=== PATIENT | male | born 1945 | race Caucasian/White ===

== ENCOUNTER 2016-09-28 11:04 | Observation (INO) ==
[2016-09-28] MEDS ORDERED: *HR* HYDROmorphone (PF) 1 MG/ML SYRINGE IVP ONE (11:16)
[2016-09-28] MEDS ORDERED: Ondansetron 4 MG/2 ML VIAL IV ONE (11:21)
--- NOTE | 2016-09-28 11:25 | Emergency Department Note ---
Disposition Clinical Impression: Cholelithiasis Qualifiers: Cholelithiasis location: gallbladder Disposition: Admitted As Inpatient Abdominal Pain HPI - General Chief Complaint: ED Abdominal Pain Stated Complaint: gallbladder pain Time Seen by Provider: 09/28/16 11:09 Source: patient, family Nursing Notes Reviewed: Yes Vital Signs Reviewed: Yes - History of Present Illness HPI Narrative: Patient comes complaint continued right upper quadrant, pain. Patient said this pain for a year and was seen twice on 09/26/2016 for similar pain. Patient states the pain is becoming unbearable and he called his surgeon's office for advice on any current remedies. Patient was advised to report to [facility] primary for evaluation. Patient feels that he is more "yellow" and normal. Patient denies bowel bladder dysfunction to the shortness of breath. Patient complains of pain is similar to what he has had the past and is at some nausea associated with this. Pain Scale: 6 - Related Data Home Medications Medication Instructions Recorded Confirmed Aspirin [Adult Low Dose Aspirin EC] 81 mg PO DAILY 10/05/15 09/28/16 Clopidogrel [Plavix] 75 mg PO DAILY 10/05/15 09/28/16 Lisinopril [Zestril] 10 mg PO DAILY 10/05/15 09/28/16 Metoprolol [Lopressor] 25 mg PO BID 10/05/15 09/28/16 Nitroglycerin 0.4 mg SL Q5MIN 10/05/15 09/28/16 Pantoprazole Sodium [Protonix] 40 mg PO DAILY 10/05/15 09/28/16 Tamsulosin [Flomax] 0.4 mg PO DAILY 10/05/15 09/28/16 Simvastatin 40 mg PO HS 03/02/16 09/28/16 Previous Rx's Medication Instructions Recorded OxyCODONE/APAP 5/325 [Percocet 1 each PO Q4HR PRN #14 tablet 09/26/16 5/325 MG] Allergies Allergy/AdvReac Type Severity Reaction Status Date / Time Penicillins Allergy Swelling Verified 09/28/16 12:15 of Lip/Tongue/Throat All systems ED: reviewed and negative except as stated. Abdominal Pain PMH - Past Medical History Medical history: Reports: coronary artery disease, diabetes, GERD, hyperlipidemia, hypertension, myocardial infarction Male Surgical History: Reports: angioplasty/stent, other Psychiatric history: Reports: no psych history - Social History Smoking status: Former smoker Alcohol use: Reports: none Drug use: Reports: none Physical Exam - General Limitations: no limitations General appearance: alert, in no apparent distress - Head Head exam: atraumatic, normocephalic, normal inspection - Eye Eye exam: Present: normal appearance, PERRL, EOMI - ENT ENT exam: normal exam, normal oropharynx, mucous membranes moist - Neck Neck exam: Present: normal inspection, full ROM, trachea midline - Chest Chest inspection: Present: normal inspection, symmetric chest wall rise - Respiratory Respiratory exam: Present: normal lung sounds bilaterally - Cardiovascular Cardiovascular exam: Present: regular rate, normal rhythm, normal heart sounds - Abdominal Exam Abdominal exam: Present: soft, tenderness. Absent: distention, guarding, rebound Abdominal tenderness: Present: RUQ - Extremities Exam Extremities exam: Present: normal inspection, full ROM. Absent: tenderness, pedal edema - Back Exam Back exam: Present: normal inspection, full ROM. Absent: tenderness - Neurological Exam Neurological exam: Present: alert, oriented X3 - Psychiatric Psychiatric exam: Present: normal affect, normal mood - Skin Skin exam: Present: warm, dry, intact, normal color Course Vital Signs Temperature 97.4 F L 09/28/16 11:05 Pulse Rate 86 09/28/16 11:05 Respiratory Rate 16 09/28/16 11:05 Blood Pressure 131/85 09/28/16 11:05 O2 Sat by Pulse Oximetry 97 09/28/16 11:05 Temperature 97.4 F L 09/28/16 11:05 Pulse Rate 80 09/28/16 12:07 Respiratory Rate 16 09/28/16 12:37 Blood Pressure 98/68 09/28/16 12:37 O2 Sat by Pulse Oximetry 97 09/28/16 12:07 Oxygen Delivery Oxygen Delivery Room Air Abdominal Pain - Differential Diagnosis Differential Diagnosis: Likely: abdominal pain non-specific, acute appendicitis , diverticulitis, gastroenteritis, pancreatitis - Lab Data Lab results reviewed: Yes I reviewed the patient's lab results. Result diagrams: 09/28/16 12:04 09/28/16 12:04 Lab Results 09/28/16 09/28/16 09/28/16 Range/Units 12:04 12:04 12:04 WBC 4.3 (4.3-11.1) K/mcL RBC 4.63 (4.19-5.50) M/mcL Hgb 12.2 L (12.9-16.9) g/dL Hct 37.7 (37.5-50.1) % MCV 81.4 L (83.0-100.0) fL MCH 26.3 L (28.0-33.3) pg MCHC 32.4 (31.6-35.5) g/dL RDW 14.0 (11.5-14.5) % Plt Count 189 (140-400) K/mcL MPV 10.0 (9.4-12.4) fL Immature Gran % 0.7 (0-4) % Seg Neutrophils % 71.1 % Lymphocytes % 13.4 % Monocytes % 12.2 % Eosinophils % 2.1 % Basophils % 0.5 % Neutrophils # 3.0 (1.6-8.9) K/mcL Lymphocytes # 0.6 (0.6-4.6) K/mcL Monocytes # 0.5 (0.0-1.3) K/mcL Eosinophils # 0.1 (0.0-0.6) K/mcL Basophils # 0.0 (0.0-0.2) K/mcL Sodium 136 (136-145) mEq/L Potassium 4.0 (3.5-4.5) mEq/L Chloride 106 (98-109) mEq/L Carbon Dioxide 22 (19-29) mEq/L BUN 10 (8-26) mg/dL Creatinine 0.80 (0.72-1.25) mg/dL Est GFR ( Amer) > 60 (> 60) Est GFR (Non-Af Amer) > 60 (> 60) BUN/Creatinine Ratio 13 (6-26) Glucose 111 H (70-99) mg/dL Calculated Osmolality 282 (280-300) Calcium 9.2 (8.6-10.8) mg/dL Total Bilirubin 2.7 H (0.2-1.2) mg/dL AST 47 H (5-34) Units/L ALT 177 H (0-55) Units/L Alkaline Phosphatase 233 H (38-126) Units/L Serum Total Protein 7.1 (6.0-8.3) g/dL Albumin 3.2 L (3.5-5.0) g/dL Globulin 3.9 H (2.4-3.5) g/dL Albumin/Globulin Ratio 0.8 L (1.1-2.2) Lipase 13 (8-78) Units/L
[2016-09-28 12:20] LABS: Basophils % 0.5 %; Eosinophils # 0.1 K/mcL (0.0-0.6); Eosinophils % 2.1 %; Hematocrit 37.7 % (37.5-50.1); Hemoglobin 12.2 g/dL (12.9-16.9); Immature Granulocytes % 0.7 % (0-4); Lymphocytes # 0.6 K/mcL (0.6-4.6); Lymphocytes % 13.4 %; Mean Corpuscular HGB Conc 32.4 g/dL (31.6-35.5); Mean Corpuscular Hemoglobin 26.3 pg (28.0-33.3); Mean Corpuscular Volume 81.4 fL (83.0-100.0); Monocytes # 0.5 K/mcL (0.0-1.3); Monocytes % 12.2 %; Platelet Count 189 K/mcL (140-400); Red Blood Count 4.63 M/mcL (4.19-5.50); Segmented Neutrophils % 71.1 %
[2016-09-28 12:33] LABS: Alanine Aminotransferase 177 Units/L (0-55); Albumin 3.2 g/dL (3.5-5.0); Albumin/Globulin Ratio 0.8 (1.1-2.2); Alkaline Phosphatase 233 Units/L (38-126); Aspartate Amino Transferase 47 Units/L (5-34); BUN/Creatinine Ratio 13 (6-26); Bilirubin,Total 2.7 mg/dL (0.2-1.2); Blood Urea Nitrogen 10 mg/dL (8-26); Calcium 9.2 mg/dL (8.6-10.8); Carbon Dioxide 22 mEq/L (19-29); Chloride 106 mEq/L (98-109); Globulin 3.9 g/dL (2.4-3.5); Glucose 111 mg/dL (70-99); Osmolality,Calculated 282 (280-300); Sodium 136 mEq/L (136-145); Total Protein 7.1 g/dL (6.0-8.3); eGFR For African Americans > 60 (> 60); eGFR For Non-African Americans > 60 (> 60)
--- NOTE | 2016-09-28 13:36 | General Surg History&Physical ---
<Patsy Witt - Last Filed: 09/28/16 13:31> Date of Encounter: 09/28/16 Time of Encounter: 13:31 Assessment and Plan (1) Recurrent biliary colic Current Visit: Yes Status: Acute The assessment and plan as outlined above was discussed with the patient and/or family members who expressed understanding and agreement. All questions were answered. Clear liquid diet NPO after midnight Plan to proceed to the OR for laparoscopic cholecystectomy with cholangiogram with Dr. Wilkerson tomorrow 09/29/16 Supportive care and pain control IV fluids Repeat labs in the am (2) Cholelithiasis Current Visit: Yes Status: Acute The assessment and plan as outlined above was discussed with the patient and/or family members who expressed understanding and agreement. All questions were answered. Clear liquid diet NPO after midnight Plan to proceed to the OR for laparoscopic cholecystectomy with cholangiogram with Dr. Wilkerson tomorrow 09/29/16 May need ERCP pending the results of intra-operative cholangiogram Supportive care and pain control IV fluids Repeat labs in the am Qualifiers: Cholelithiasis location: gallbladder Cholecystitis presence: without cholecystitis Biliary obstruction: with biliary obstruction Qualified Code(s ): K80.21 - Calculus of gallbladder without cholecystitis with obstruction (3) Elevated LFTs Current Visit: No Status: Acute The assessment and plan as outlined above was discussed with the patient and/or family members who expressed understanding and agreement. All questions were answered. Clear liquid diet NPO after midnight Plan to proceed to the OR for laparoscopic cholecystectomy with cholangiogram with Dr. Wilkerson tomorrow 09/29/16 May need ERCP pending the results of intra-operative cholangiogram Supportive care and pain control IV fluids Repeat labs in the am (4) Coronary artery disease Current Visit: No Status: Chronic The assessment and plan as outlined above was discussed with the patient and/or family members who expressed understanding and agreement. All questions were answered. Qualifiers: Coronary Disease-Associated Artery/Lesion type: [place] artery [place] vs. transplanted heart: [place] heart Associated angina: without angina Qualified Code(s): I25.10 - Atherosclerotic heart disease of [place] coronary artery without angina pectoris (5) Hypertension Current Visit: No Status: Chronic The assessment and plan as outlined above was discussed with the patient and/or family members who expressed understanding and agreement. All questions were answered. Normotensive at this time Will monitor and treat as necessary Qualifiers: Hypertension type: essential hypertension Qualified Code(s): I10 - Essential (primary) hypertension (6) Hyperlipidemia Current Visit: No Status: Chronic The assessment and plan as outlined above was discussed with the patient and/or family members who expressed understanding and agreement. All questions were answered. Qualifiers: Hyperlipidemia type: unspecified Qualified Code(s): E78.5 - Hyperlipidemia , unspecified (7) DVT prophylaxis Current Visit: Yes Status: Acute The assessment and plan as outlined above was discussed with the patient and/or family members who expressed understanding and agreement. All questions were answered. EPCDs to bilateral lower extremities for DVT prophylaxis History of Present Illness Chief complaint: RUQ pain with associated nausea/vomiting HPI: Mr. Albert is a 71 year old male who has been seen and evaluated by Dr. Wilkerson as an outpatient for Recurrent biliary colic. He states that he has had symptoms on and off for approximately the past 1 year. He states that his most recent episode occurred last night and that they episodes are becoming more frequent and intense. He reported to the ED with severe RUQ pain with associated nausea/vomiting. He denies any hematemesis or coffee ground emesis. He does admit to chills but denies any fevers. He admits to heartburn. He denies diarrhea but does admit to constipation. His last BM was this morning and he denies any melena or hematochezia. He states that he noticed his skin appeared yellow this morning. Denies any shortness of breath or chest pains. He is urinating without difficulty however his urine was dark this morning. We will be admitting the patient for further work-up and treatment. Past Med Surg Social Fam HX - Past Medical History Source: patient, old records reviewed Medical history: coronary artery disease, diabetes, GERD, hyperlipidemia, hypertension, myocardial infarction, other (irregular heart beat) Psychiatric history: no psych history - Past Surgical History Surgical History: angioplasty/stent (01/23/2013), other (colonoscopy 2009, EGD) - Social History Smoking Status: Former smoker Smokeless Tobacco Status: No Alcohol use: none Drug use: none - Family History Father Living Status: Hx Family Cardiac Disorders: Yes Hx Family Cancer: Yes Mother Hx Family Cancer: Yes Medications and Allergies Aspirin [Adult Low Dose Aspirin EC] 81 mg PO DAILY 01/16/16 [History] Clopidogrel [Plavix] 75 mg PO DAILY 10/05/15 [History] Lisinopril [Zestril] 10 mg PO DAILY 10/05/15 [History] Metoprolol [Lopressor] 25 mg PO BID 10/05/15 [History] Nitroglycerin 0.4 mg SL Q5MIN 10/05/15 [History] Pantoprazole Sodium [Protonix] 40 mg PO DAILY 10/05/15 [History] Tamsulosin [Flomax] 0.4 mg PO DAILY 10/05/15 [History] Simvastatin 40 mg PO HS 03/02/16 [History] OxyCODONE/APAP 10/325 [Percocet 10/325 MG] 1 each PO Q6HR PRN #26 tablet [Rx] Allergies Penicillins Allergy (Verified 09/28/16 12:15) Swelling of Lip/Tongue/Throat Review of Systems All systems PM: reviewed and no additional remarkable complaints except as stated (in the HPI) All systems PM: A 10-system review of systems was performed and is negative for pertinent findings except as documented above in the HPI. General Surgery Exam Initial Vital Signs Temp Pulse Resp BP Pulse Ox 97.4 F L 86 16 131/85 97 09/28/16 11:05 09/28/16 11:05 09/28/16 11:05 09/28/16 11:05 09/28/16 11:05 - General physical appearance well developed, well nourished, no distress, no pain - Eyes normal ocular movement, icteric - ENT normal mucosa, atraumatic, normocephalic - Neck trachea midline - Respiratory normal expansion, normal respiratory effort, clear to auscultation - Cardiovascular Cardiovascular exam: Present: RRR, 15, 16 - Abdomen Abdomen general surgery: Present: bowel sounds present, soft, tender (mildly) Abdominal Tenderness: Present: epigastic, RUQ - Integumentary Integumentary general surgery: Present: warm and dry, no abnormal pigmentation - Neurologic Present: CN 2-12 grossly intact - Musculoskeletal Present: normal gait, normal posture - Psychiatric Psychiatric general surgery: Present: appropriate, oriented to person, oriented to place, oriented to time, speech is normal, memory intact Results - Labs 09/28/16 12:04 09/28/16 12:04 Abnormal lab results Hgb 12.2 g/dL (12.9-16.9) L 09/28/16 12:04 MCV 81.4 fL (83.0-100.0) L 09/28/16 12:04 MCH 26.3 pg (28.0-33.3) L 09/28/16 12:04 Glucose 111 mg/dL (70-99) H 09/28/16 12:04 Total Bilirubin 2.7 mg/dL (0.2-1.2) H 09/28/16 12:04 AST 47 Units/L (5-34) H 09/28/16 12:04 ALT 177 Units/L (0-55) H 09/28/16 12:04 Alkaline Phosphatase 233 Units/L (38-126) H 09/28/16 12:04 Albumin 3.2 g/dL (3.5-5.0) L 09/28/16 12:04 Globulin 3.9 g/dL (2.4-3.5) H 09/28/16 12:04 Albumin/Globulin Ratio 0.8 (1.1-2.2) L 09/28/16 12:04 All other labs normal. - Attending Attestation I examined this patient and my medical decision-making was reviewed with the KILN PLACER/PA/Advanced Practice Nurse/Resident Physician. I agree with the documented findings, disposition and treatment plan as described except to the extent set forth below. <Deng Wilkerson - Last Filed: 09/30/16 08:04> History of Present Illness HPI: Mr. Albert is a 71 year old male Review of Systems All systems PM: A 10-system review of systems was performed and is negative for pertinent findings except as documented above in the HPI. General Surgery Exam Initial Vital Signs Temp Pulse Resp BP Pulse Ox 97.4 F L 86 16 131/85 97 09/28/16 11:05 09/28/16 11:05 09/28/16 11:05 09/28/16 11:05 09/28/16 11:05 Results - Labs 09/30/16 05:11 09/29/16 04:23 Abnormal lab results Hgb 11.3 g/dL (12.9-16.9) L 09/30/16 05:11 Hct 35.6 % (37.5-50.1) L 09/30/16 05:11 MCV 82.2 fL (83.0-100.0) L 09/30/16 05:11 MCH 26.1 pg (28.0-33.3) L 09/30/16 05:11 PT 12.5 Seconds (9.4-12.1) H 09/29/16 04:23 Creatinine 0.70 mg/dL (0.72-1.25) L 09/29/16 04:23 Total Bilirubin 1.5 mg/dL (0.2-1.2) H 09/30/16 05:11 Direct Bilirubin 0.6 mg/dL (0.0-0.5) H 09/30/16 05:11 AST 59 Units/L (5-34) H 09/30/16 05:11 ALT 120 Units/L (0-55) H 09/30/16 05:11 Alkaline Phosphatase 190 Units/L (38-126) H 09/30/16 05:11 Albumin 3.0 g/dL (3.5-5.0) L 09/30/16 05:11 Globulin 3.8 g/dL (2.4-3.5) H 09/30/16 05:11 Albumin/Globulin Ratio 0.8 (1.1-2.2) L 09/30/16 05:11 Urine Protein 30 mg/dL (Neg-Trace) H 09/28/16 14:50 Urine Ketones Trace mg/dL (Negative) H 09/28/16 14:50 Urine Blood Trace (Negative) H 09/28/16 14:50 Urine Bilirubin Moderate (Negative) H 09/28/16 14:50 Urine Urobilinogen 4.0 mg/dL (Normal) H 09/28/16 14:50 Ur Squamous Epith Cells Moderate per lpf (None-Few) H 09/28/16 14:50 Diabetes panel 09/30/16 Range/Units 05:11 AST 59 H (5-34) Units/L ALT 120 H (0-55) Units/L Alkaline Phosphatase 190 H (38-126) Units/L Albumin 3.0 L (3.5-5.0) g/dL Calcium panel 09/30/16 Range/Units 05:11 Albumin 3.0 L (3.5-5.0) g/dL Adrenal panel 09/30/16 Range/Units 05:11 Total Bilirubin 1.5 H (0.2-1.2) mg/dL AST 59 H (5-34) Units/L ALT 120 H (0-55) Units/L Alkaline Phosphatase 190 H (38-126) Units/L Albumin 3.0 L (3.5-5.0) g/dL All other labs normal. - Attending Attestation Deng Wilkerson MD FACS
[2016-09-28] MEDS ORDERED: Ondansetron 4 MG/2 ML VIAL IVP PRN (14:09)
[2016-09-28] MEDS ORDERED: Naloxone 0.4 MG/ML INJ IVP PRN (14:09)
[2016-09-28] MEDS: 0.9 % Sodium Chloride 1,000 ML IVC SCH (14:50)
[2016-09-28 15:02] LABS: Bilirubin,Urine Moderate (Negative); Blood,Urine Trace (Negative); Clarity,Urine Clear (Clear); Color,Urine Dark Yellow (Yellow); Glucose,Urine (UA) Normal (Normal); Ketones,Urine Trace mg/dL (Negative); Leukocyte Esterase,Urine Negative (Negative); Nitrite,Urine Negative (Negative); PH,Urine 5.5 pH Units (5.0-8.0); Protein,Urine 30 mg/dL (Neg-Trace); Specific Gravity,Urine 1.024 (1.010-1.025)
[2016-09-28 15:04] LABS: Bacteria,Urine None Seen per hpf (None-Few); Hyaline Casts,Urine None Seen per lpf (None-Few); RBC,Urine 0-3 per hpf (0-3); Squamous Epithelial Cell,Urine Moderate per lpf (None-Few); WBC,Urine 0-3 per hpf (0-3)
--- NOTE | 2016-09-28 20:29 | Anesthesia Evaluation PreOp ---
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 History: Denies Any Significant HX Other Medical History: Diabetes Type II, GERD Anesthesia History: No Prior Anesthetic Complications, Past Anesthesia ( angioplasty/stent, cscope, egd) Alcohol Use: none Drug use: none Medications and Allergies Aspirin [Adult Low Dose Aspirin EC] 81 mg PO DAILY 10/05/15 [History] Clopidogrel [Plavix] 75 mg PO DAILY 10/05/15 [History] Lisinopril [Zestril] 10 mg PO DAILY 10/05/15 [History] Metoprolol [Lopressor] 25 mg PO BID 10/05/15 [History] Nitroglycerin 0.4 mg SL Q5MIN 10/05/15 [History] Pantoprazole Sodium [Protonix] 40 mg PO DAILY 10/05/15 [History] Tamsulosin [Flomax] 0.4 mg PO DAILY 10/05/15 [History] Simvastatin 40 mg PO HS 03/02/16 [History] OxyCODONE/APAP 5/325 [Percocet 5/325 MG] 1 each PO Q4HR PRN #14 tablet 09/26/16 [Rx] Allergies Penicillins Allergy (Verified 09/28/16 12:15) Swelling of Lip/Tongue/Throat - Meds/Allergy Pre-op Review Medications Reviewed: Yes Allergies Reviewed: Yes Beta Blockers on Current Med List: Yes If Beta Blockers taken, Date/Time (Last Dose taken): metoprolol Anesthesia Results - Labs 09/28/16 12:04 09/28/16 12:04 - Imaging EKG: report reviewed (sr) Anesthesia Exam Vital Signs/O2 Sat/Glucose, Most Current Temp Pulse Resp BP Pulse Ox 09/28/16 20:00 98.1 F 95 16 108/66 94 L Height: 1.8 Weight: 82 NPO (# of Hours): >8 - HEENT Pupil (Motor): Pupils equal, EOMI Mallampati: II Teeth: Poor dentition Oral Opening: Greater than 3 - 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
[2016-09-28] MEDS: *HR* HYDROmorphone (PF) 1 MG/ML SYRINGE IVP PRN (23:43)
[2016-09-29 05:01] LABS: INR 1.2; Prothrombin Time 12.5 Seconds (9.4-12.1)
[2016-09-29 05:06] LABS: Basophils % 0.5 %; Eosinophils # 0.1 K/mcL (0.0-0.6); Eosinophils % 2.2 %; Hematocrit 34.6 % (37.5-50.1); Immature Granulocytes % 0.3 % (0-4); Lymphocytes # 0.9 K/mcL (0.6-4.6); Lymphocytes % 23.6 %; Mean Corpuscular HGB Conc 31.8 g/dL (31.6-35.5); Mean Corpuscular Hemoglobin 26.1 pg (28.0-33.3); Mean Corpuscular Volume 82.2 fL (83.0-100.0); Mean Platelet Volume 10.3 fL (9.4-12.4); Monocytes # 0.5 K/mcL (0.0-1.3); Monocytes % 12.8 %; Neutrophils # 2.2 K/mcL (1.6-8.9); Platelet Count 184 K/mcL (140-400); Red Blood Count 4.21 M/mcL (4.19-5.50); Segmented Neutrophils % 60.6 %
[2016-09-29 05:12] LABS: Alanine Aminotransferase 126 Units/L (0-55); Albumin 2.9 g/dL (3.5-5.0); Albumin/Globulin Ratio 0.8 (1.1-2.2); Alkaline Phosphatase 202 Units/L (38-126); Aspartate Amino Transferase 33 Units/L (5-34); BUN/Creatinine Ratio 11 (6-26); Bilirubin,Direct 0.7 mg/dL (0.0-0.5); Bilirubin,Indirect 1.1 mg/dL (0.0-1.2); Bilirubin,Total 1.8 mg/dL (0.2-1.2); Blood Urea Nitrogen 8 mg/dL (8-26); Calcium 8.6 mg/dL (8.6-10.8); Carbon Dioxide 22 mEq/L (19-29); Chloride 107 mEq/L (98-109); Globulin 3.5 g/dL (2.4-3.5); Glucose 97 mg/dL (70-99); Osmolality,Calculated 282 (280-300); Potassium 3.9 mEq/L (3.5-4.5); Sodium 137 mEq/L (136-145); Total Protein 6.4 g/dL (6.0-8.3); eGFR For African Americans > 60 (> 60); eGFR For Non-African Americans > 60 (> 60)
[2016-09-29] MEDS: *HR* HYDROmorphone (PF) 1 MG/ML SYRINGE IVP PRN ×5 (06:44→17:38)
[2016-09-29] MEDS ORDERED: Pantoprazole 40 MG VIAL IVP SCH (09:00)
--- NOTE | 2016-09-29 11:39 | General Surgery Progress Note ---
Date of Encounter: 09/29/16 Time of Encounter: 11:37 - Assessment and Plan (1) Cholelithiasis Current Visit: Yes Status: Acute I discussed with the patient that I will be performing the laparoscopic cholecystectomy with [facility] today instead of Dr. Wilkerson due to scheduling conflicts. Risks and benefits have been discussed with the patient and he agrees to the above planned surgery. Qualifiers: Cholelithiasis location: gallbladder Cholecystitis presence: without cholecystitis Biliary obstruction: with biliary obstruction Qualified Code(s ): K80.21 - Calculus of gallbladder without cholecystitis with obstruction (2) Elevated LFTs Current Visit: No Status: Acute Please see above. Subjective Patient reports: no new complaints, other (Not currently having pain.) Objective Vital Signs - Last 8 Hours Temp Pulse Resp BP Pulse Ox 09/29/16 07:00 98.0 F 76 16 131/77 94 L 09/29/16 04:27 98.1 F 77 16 124/77 94 L Intake and Output 09/28/16 09/29/16 09/29/16 23:59 07:59 15:59 Intake Total 960 / 960 0 / 0 Output Total 1000 / 1000 250 / 250 380 / 380 Balance -40 / -40 -250 / -250 -380 / -380 Intake: Oral 960 / 960 0 / 0 Output: Urine 1000 / 1000 250 / 250 380 / 380 Other: Meal Dinner NPO breakfast Blood Glucose* 76 90 - General physical appearance well developed, well nourished - Abdomen Abdomen: Present: bowel sounds present, soft, non tender - Labs 09/29/16 04:23 09/29/16 04:23 Diabetes panel 09/29/16 Range/Units 04:23 Sodium 137 (136-145) mEq/L Potassium 3.9 (3.5-4.5) mEq/L Chloride 107 (98-109) mEq/L Carbon Dioxide 22 (19-29) mEq/L BUN 8 (8-26) mg/dL Creatinine 0.70 L (0.72-1.25) mg/dL Glucose 97 (70-99) mg/dL Calcium 8.6 (8.6-10.8) mg/dL AST 33 (5-34) Units/L ALT 126 H (0-55) Units/L Alkaline Phosphatase 202 H (38-126) Units/L Albumin 2.9 L (3.5-5.0) g/dL Calcium panel 09/29/16 Range/Units 04:23 Calcium 8.6 (8.6-10.8) mg/dL Albumin 2.9 L (3.5-5.0) g/dL Pituitary panel 09/29/16 Range/Units 04:23 Sodium 137 (136-145) mEq/L Potassium 3.9 (3.5-4.5) mEq/L Chloride 107 (98-109) mEq/L Carbon Dioxide 22 (19-29) mEq/L BUN 8 (8-26) mg/dL Creatinine 0.70 L (0.72-1.25) mg/dL Glucose 97 (70-99) mg/dL Calcium 8.6 (8.6-10.8) mg/dL Adrenal panel 09/29/16 Range/Units 04:23 Sodium 137 (136-145) mEq/L Potassium 3.9 (3.5-4.5) mEq/L Chloride 107 (98-109) mEq/L Carbon Dioxide 22 (19-29) mEq/L BUN 8 (8-26) mg/dL Creatinine 0.70 L (0.72-1.25) mg/dL Glucose 97 (70-99) mg/dL Calcium 8.6 (8.6-10.8) mg/dL Total Bilirubin 1.8 H (0.2-1.2) mg/dL AST 33 (5-34) Units/L ALT 126 H (0-55) Units/L Alkaline Phosphatase 202 H (38-126) Units/L Albumin 2.9 L (3.5-5.0) g/dL Consult Discharge Plan - Plan Referrals: Sigifredo Samano MD [Primary Care Provider] -
[2016-09-29] MEDS ORDERED: MetroNIDAZOLE 500 MG/100 ML 500 MG/100 ML BAG IVPB ONE (12:54)
[2016-09-29] MEDS ORDERED: Levofloxacin 500 MG/100 ML 500 MG/100 ML BAG IVPB ONE (13:01)
[2016-09-29] MEDS ORDERED: EPHEDrine 50 MG/ML VIAL ONE (13:04)
[2016-09-29] MEDS ORDERED: *HR* Promethazine 25 MG/ML VIAL IVP PRN (13:10)
[2016-09-29] MEDS ORDERED: *HR* FentaNYL (PF) 100 MCG/2 ML VIAL ONE ×2 (13:19→13:35)
[2016-09-29] MEDS ORDERED: Neostigmine Methylsulfate 3 MG/3 ML SYRINGE ONE (13:21)
[2016-09-29] MEDS ORDERED: *HR* Labetalol 20 MG/4 ML SYRINGE IVP ONE (13:28)
[2016-09-29] MEDS ORDERED: Lidocaine -MPF 4% 5 ML AMPUL ONE (13:35)
[2016-09-29] MEDS ORDERED: *HR* Succinylcholine 200 MG/10 ML VIAL IVP ONE (13:35)
[2016-09-29] MEDS ORDERED: Dexamethasone 4 MG/ML VIAL ONE (13:35)
[2016-09-29] MEDS ORDERED: Lidocaine -MPF 2% 2 ML VIAL ONE (13:35)
[2016-09-29] MEDS ORDERED: Ondansetron 4 MG/2 ML VIAL ONE (13:35)
[2016-09-29] MEDS ORDERED: *HR* Propofol 200 MG/20 ML VIAL IVP ONE (13:35)
[2016-09-29] MEDS ORDERED: *HR* Rocuronium Bromide 50 MG/5 ML VIAL ONE (13:35)
--- NOTE | 2016-09-29 14:12 | Operative Note ---
Date of procedure: 09/29/16 Pre-op diagnosis: Biliary colic, Elevated LFTs Post-op diagnosis: other (Acute cholecystitis, Elevated LFTs, umbilical hernia) Procedure: 1. Laparoscopic cholecystectomy with IOC 2. Open primary umbilical hernia repair Anesthesia: NKECHI Surgeon: Alexis Cunha Mortar Man: Nava Cook Specimen: Gallbladder and contents Condition: stable Disposition: PACU Procedure in Detail: Date of surgery: 09/28/16 After properly identifying the patient, the patient was brought to the operating room and placed in the supine position. After proper IV sedation was achieved followed by general endotracheal intubation, the patient's abdomen was prepped and draped in a normal sterile fashion. A timeout was performed noting the patient's name and type of procedure to be performed. A subumbilical incision with an 11 blade scalpel was made down to the level of the rectus fascia and the patient was noted to have a small umbilical hernia. The peritoneal tissue was dissected away from the dermis of the umbilicus followed by entry into the abdomen via the peritoneum of the umbilical hernia defect. A 12 mm port was placed through the incision and the abdomen was insufflated with carbon dioxide. A laparoscopic camera was placed through the port which showed no injury to the intra-abdominal organs upon entry.. A subxiphoid 5 mm port and a right subcostal margin 5 mm port were then placed under direct camera visualization. The patient was placed in a reverse Trendelenburg position and the right upper quadrant was examined. There were omental adhesions to the gallbladder dome were noted and were dissected free with bovie cautery. The gallbladder was identified and retracted superiorly/anteriorly and the peritoneal covering overlying the cystic duct and artery was bluntly dissected with the [place] dissector. The gallbladder and the surrounding tissue were mildly inflamed consistent with mild acute cholecystitis. The cystic duct was dissected free from its normal resting position and the distal portion of the cystic duct was clipped with a laparascopic clip production helper. There nontraumatic grasper was exchanged for a Springer grasper and the cholangiogram catheter was then placed through the side-port of the Springer grasper. Laparoscopic scissors were used to make an incision just proximal to the clip of the cystic duct and the catheter was placed through this opening and secured in place with a laparoscopic clip. An intraoperative cholangiogram was performed which demonstrated flow through the common bile duct into the small bowel without a filling defect and retrograde filling of the hepatic radicles. The clenched carole catheter was then removed and the cystic duct was formally clipped with laparoscopic clips and incised with laparoscopic scissors. The cystic artery was likewise identified, clipped with laparoscopic clips, and incised with laparoscopic scissors. The gallbladder was then dissected away from the gallbladder fossa with Bovie cauterization while bovie cauterization was used to maintain hemostasis. Once the gallbladder was dissected free it was removed from the abdomen via an Endobag. Reinspection of the right upper quadrant demonstrated maintenance of hemostasis and the right upper quadrant was briefly irrigated with normal saline solution until the effluent was clear. All ports were then removed from the abdomen after the abdomen was desufflated. The umbilical hernia defect was reapproximated using a 0 Vicryl suture in a [id number] fashion. The subcutaneous tissue was reapproximated with an interrupted 3-0 Vicryl suture and the epidermal and dermal layers for the remaining incisions were closed with 4-0 Monocryl sutures. Needle, sponge, and instrument counts were correct 2 and the incisions were covered with Steri- Strips and Band-Aids. The patient was aroused from IV sedation, extubated in the operating room without complication, and transported to the recovery room in stable condition.
--- NOTE | 2016-09-29 15:15 | Anesthesia Evaluation Post Op ---
Date of Encounter: 09/29/16 Time of Encounter: 15:14 - Vital Signs Vital Signs: Vital Signs/O2 Sat, Most Current Temp Pulse Resp BP Pulse Ox 97.6 F 82 16 122/78 94 L 09/29/16 14:55 09/29/16 15:05 09/29/16 15:05 09/29/16 15:05 09/29/16 15:05 - Lungs Lungs: Clear Ascult./Percussion - Airway Airway: Non-obstructed - Cardiovascular Regular Rate - Mental Status Mental Status: Alert & Oriented, Answers Appropriately - Pain Pain Scale: 0 - Nausea Vomiting Nausea Vomiting: Not Present - Hydration Hydration: Ice chips, Has not voided - Discharge PostOp Status: Transfer Patient to floor
[2016-09-29] MEDS ORDERED: Naloxone 0.4 MG/ML INJ IVP PRN (15:29)
[2016-09-29] MEDS ORDERED: Ondansetron 4 MG/2 ML VIAL IVP PRN (15:29)
[2016-09-29] MEDS: *HR* OxyCODONE/APAP 10/325 TABLET PO PRN (20:14)
[2016-09-30] MEDS: 0.9 % Sodium Chloride 1,000 ML IVC SCH ×3 (01:00→08:56)
[2016-09-30] MEDS: *HR* HYDROmorphone (PF) 1 MG/ML SYRINGE IVP PRN (01:06)
[2016-09-30] MEDS: *HR* OxyCODONE/APAP 10/325 TABLET PO PRN (04:42)
[2016-09-30 05:43] LABS: Basophils % 0.2 %; Eosinophils % 0.4 %; Hematocrit 35.6 % (37.5-50.1); Hemoglobin 11.3 g/dL (12.9-16.9); Immature Granulocytes % 0.4 % (0-4); Lymphocytes # 0.9 K/mcL (0.6-4.6); Lymphocytes % 16.3 %; Mean Corpuscular HGB Conc 31.7 g/dL (31.6-35.5); Mean Corpuscular Hemoglobin 26.1 pg (28.0-33.3); Mean Corpuscular Volume 82.2 fL (83.0-100.0); Mean Platelet Volume 9.9 fL (9.4-12.4); Monocytes # 0.9 K/mcL (0.0-1.3); Monocytes % 15.4 %; Neutrophils # 3.7 K/mcL (1.6-8.9); Platelet Count 192 K/mcL (140-400); Red Blood Count 4.33 M/mcL (4.19-5.50); Red Cell Distribution Width 14.4 % (11.5-14.5); Segmented Neutrophils % 67.3 %
[2016-09-30 05:53] VITALS: BP 118/73
[2016-09-30 05:57] LABS: Albumin/Globulin Ratio 0.8 (1.1-2.2); Bilirubin,Direct 0.6 mg/dL (0.0-0.5); Bilirubin,Indirect 0.9 mg/dL (0.0-1.2); Bilirubin,Total 1.5 mg/dL (0.2-1.2); Globulin 3.8 g/dL (2.4-3.5); Total Protein 6.8 g/dL (6.0-8.3)
--- NOTE | 2016-09-30 06:52 | Discharge Summary ---
Date of Encounter: 09/30/16 Time of Encounter: 07:10 - Discharge Diagnosis (1) Cholelithiasis Priority: Primary Status: Acute Qualifiers: Cholelithiasis location: gallbladder Cholecystitis presence: without cholecystitis Biliary obstruction: with biliary obstruction Qualified Code(s ): K80.21 - Calculus of gallbladder without cholecystitis with obstruction (2) Elevated LFTs Priority: Primary Status: Acute - Discharge Medications Prescriptions: OxyCODONE/APAP 10/325 [Percocet 10/325 MG] 1 each PO Q6HR PRN #26 tablet PRN Reason: Pain Home Medications: Aspirin [Adult Low Dose Aspirin EC] 81 mg PO DAILY 10/05/15 [History] Clopidogrel [Plavix] 75 mg PO DAILY 10/05/15 [History] Lisinopril [Zestril] 10 mg PO DAILY 10/05/15 [History] Metoprolol [Lopressor] 25 mg PO BID 10/05/15 [History] Nitroglycerin 0.4 mg SL Q5MIN 10/05/15 [History] Pantoprazole Sodium [Protonix] 40 mg PO DAILY 10/05/15 [History] Tamsulosin [Flomax] 0.4 mg PO DAILY 10/05/15 [History] Simvastatin 40 mg PO HS 03/02/16 [History] OxyCODONE/APAP 10/325 [Percocet 10/325 MG] 1 each PO Q6HR PRN #26 tablet [Rx] Allergies/Adverse Reactions: Allergies Penicillins Allergy (Verified 09/28/16 12:15) Swelling of Lip/Tongue/Throat General Surgery Exam Initial Vital Signs Temp Pulse Resp BP Pulse Ox 97.4 F L 86 16 131/85 97 09/28/16 11:05 09/28/16 11:05 09/28/16 11:05 09/28/16 11:05 09/28/16 11:05 - Eyes PERRL, normal ocular movement - Abdomen Abdomen general surgery: Present: soft, tender (Mild incisional tenderness. Dressing in place. ) Date of admission: 09/28/16 12:30 Primary care physician: Sigifredo Samano, Discharging clinician: Alexis Cunha Anticipated date of discharge: 09/30/16 - Patient Status Disposition: Home, Self-Care Condition: Good Overall status at discharge: patient is progressing back to baseline - Discharge Instructions Follow Up With: Sigifredo Samano MD [Primary Care Provider] - Additional Instructions: No heavy lifting greater than 15 pounds for 2 weeks. - Hospital Course Hospital course: Mr. Albert is a 71 year old male presented to [facility] on 09/28/2016 with episodic symptoms of epigastric right upper quadrant pain. He had been followed as an outpatient due to his abdominal pain and elevated liver function tests. He was to have elective Cholecystectomy with cholangiogram as an outpatient but because of his persistent symptoms he was admitted to the hospital and got to the operating room on 09/29/2016 for a laparoscopic cholecystectomy with intraoperative cholangiogram which showed no evidence of common bile duct stone. The patient tolerated his procedure well and was able to tolerate by mouth diet with advancement to solid foods and toleration of his pain with oral pain medication. Due to his overall improved status he was discharged home on 09/30/2016 with instructions to follow-up with [facility] in 2 weeks. Time spent discussing smoking cessation with patient: 3 to 10 minutes - Time Spent with Patient Total time spent providing and/or coordinating discharge services: Less than 30 minutes Labs on day of discharge: Labs from last 24 hours 09/30/16 09/30/16 09/29/16 05:11 05:11 11:37 WBC 5.5 RBC 4.33 Hgb 11.3 L Hct 35.6 L MCV 82.2 L MCH 26.1 L MCHC 31.7 RDW 14.4 Plt Count 192 MPV 9.9 Immature Gran % 0.4 Seg Neutrophils % 67.3 Lymphocytes % 16.3 Monocytes % 15.4 Eosinophils % 0.4 Basophils % 0.2 Neutrophils # 3.7 Lymphocytes # 0.9 Monocytes # 0.9 Eosinophils # 0.0 Basophils # 0.0 POC Glucose 89 Total Bilirubin 1.5 H Direct Bilirubin 0.6 H Indirect Bilirubin 0.9 AST 59 H ALT 120 H Alkaline Phosphatase 190 H Serum Total Protein 6.8 Albumin 3.0 L Globulin 3.8 H Albumin/Globulin Ratio 0.8 L - Impressions ITS Impressions Cholangiogram,Operative 09/29/16 00:00 IMPRESSION: Refer to surgical report. D/ / 09/29/2016 13:59:09 Greg Kelley MD / bcarter Interpreting Provider: Greg Kelley MD
[2016-09-30] MEDS ORDERED: Pantoprazole 40 MG VIAL IVP SCH (09:00)
[2016-09-30] MEDS ORDERED: *HR* Heparin 5,000 UNIT/ML VIAL SQ SCH (09:00)
== END 2016-09-30 09:29 | disposition home or self-care (01) ==
LOC: EMEROO 11:04 → 3ANU 11:04
PROVIDERS: ADMIT Surgery; ATTEND Surgery

== ENCOUNTER 2020-10-07 09:36 | Observation (INO) ==
[2020-10-07] MEDS ORDERED: *HR* FentaNYL (PF) 100 MCG/2 ML VIAL IVP ONE (09:50)
[2020-10-07] MEDS ORDERED: Ondansetron 4 MG/2 ML VIAL IVP ONE (09:50)
[2020-10-07 10:13] LABS: Basophils % 0.4 %; Eosinophils # 0.1 K/mcL (0.0-0.6); Eosinophils % 0.9 %; Hematocrit 43.1 % (37.5-50.1); Hemoglobin 13.6 g/dL (12.9-16.9); Immature Granulocytes % 0.4 % (0-4); Lymphocytes # 0.8 K/mcL (0.6-4.6); Lymphocytes % 10.8 %; Mean Corpuscular HGB Conc 31.6 g/dL (31.6-35.5); Mean Corpuscular Volume 88.9 fL (83.0-100.0); Monocytes # 0.8 K/mcL (0.0-1.3); Monocytes % 11.6 %; Neutrophils # 5.3 K/mcL (1.6-8.9); Platelet Count 200 K/mcL (140-400); Red Blood Count 4.85 M/mcL (4.19-5.50); Red Cell Distribution Width 12.4 % (11.5-14.5); Segmented Neutrophils % 75.9 %
[2020-10-07 10:22] LABS: BUN/Creatinine Ratio 9 (6-26); Blood Urea Nitrogen 10 mg/dL (8-23); Calcium 9.1 mg/dL (8.6-10.3); Carbon Dioxide 27 mEq/L (23-29); Chloride 101 mEq/L (98-107); Glucose 111 mg/dL (70-105); Osmolality,Calculated 282 (280-300); Potassium 3.5 mEq/L (3.5-5.1); Sodium 136 mEq/L (136-145); eGFR For African Americans > 60 (> 60); eGFR For Non-African Americans > 60 (> 60)
[2020-10-07 10:24] LABS: Bilirubin,Urine Negative (Negative); Blood,Urine Trace (Negative); Clarity,Urine Clear (Clear); Color,Urine Light-Yellow (Yellow); Glucose,Urine (UA) Normal (Normal); Ketones,Urine Negative (Negative); Leukocyte Esterase,Urine Negative (Negative); Nitrite,Urine Negative (Negative); PH,Urine 6.5 pH Units (5.0-8.0); Protein,Urine Trace mg/dL (Neg-Trace); Specific Gravity,Urine 1.018 (1.010-1.025)
[2020-10-07] MEDS ORDERED: *HR* HYDROmorphone (PF) 1 MG/ML SYRINGE IVP ONE (11:02)
[2020-10-07] MEDS ORDERED: 0.9 % Sodium Chloride 1,000 ML IVC SCH ×2 (11:15→11:45)
[2020-10-07] MEDS ORDERED: Ondansetron 4 MG/2 ML VIAL IVP PRN ×3 (11:34→16:35)
[2020-10-07] MEDS ORDERED: Naloxone 0.4 MG/ML INJ IVP PRN ×2 (11:34→16:35)
[2020-10-07] MEDS ORDERED: Acetaminophen 325 MG TABLET PO PRN ×2 (11:34→16:35)
[2020-10-07] MEDS ORDERED: *HR* HYDROcodone/Acet 5/325 mg TABLET PO PRN ×2 (11:34→16:35)
[2020-10-07] MEDS ORDERED: *HR* OxyCODONE Immed Rel 5 MG TABLET PO PRN ×3 (11:34→16:35)
[2020-10-07] MEDS ORDERED: *HR* HYDROmorphone (PF) 1 MG/ML SYRINGE IVP PRN ×2 (11:37→16:35)
[2020-10-07] MEDS ORDERED: levoFLOXacin 500 MG/100 ML 500 MG/100 ML BAG IVPB SCH (12:30)
[2020-10-07] MEDS ORDERED: *HR* FentaNYL (PF) 100 MCG/2 ML VIAL ONE (14:09)
[2020-10-07] MEDS ORDERED: Lidocaine -MPF 2% 2 ML VIAL ONE (14:10)
[2020-10-07] MEDS ORDERED: *HR* Propofol 200 MG/20 ML VIAL IVP ONE (14:10)
[2020-10-07] MEDS ORDERED: Ringers Solution, Lactated 1,000 ML IVC SCH (14:15)
[2020-10-07] MEDS ORDERED: Isovue-300 50ML VIAL ONE (14:16)
[2020-10-07] MEDS ORDERED: Ondansetron 4 MG/2 ML VIAL ONE (14:31)
[2020-10-07] MEDS ORDERED: 0.9 % Sodium Chloride 1,000 ML ONE (16:37)
[2020-10-07] MEDS: 0.9 % Sodium Chloride 1,000 ML IVC SCH (17:34)
[2020-10-08] MEDS: 0.9 % Sodium Chloride 1,000 ML IVC SCH (02:13)
[2020-10-08 05:22] LABS: Basophils % 0.1 %; Eosinophils % 0.3 %; Hematocrit 34.2 % (37.5-50.1); Immature Granulocytes % 0.3 % (0-4); Lymphocytes # 0.7 K/mcL (0.6-4.6); Lymphocytes % 10.6 %; Mean Corpuscular HGB Conc 32.5 g/dL (31.6-35.5); Mean Corpuscular Hemoglobin 28.9 pg (28.0-33.3); Mean Corpuscular Volume 89.1 fL (83.0-100.0); Mean Platelet Volume 10.6 fL (9.4-12.4); Monocytes # 0.7 K/mcL (0.0-1.3); Monocytes % 10.2 %; Neutrophils # 5.2 K/mcL (1.6-8.9); Platelet Count 167 K/mcL (140-400); Red Blood Count 3.84 M/mcL (4.19-5.50); Red Cell Distribution Width 12.6 % (11.5-14.5); Segmented Neutrophils % 78.5 %; White Blood Count 6.7 K/mcL (4.3-11.1)
[2020-10-08 05:24] LABS: Hemoglobin 11.1 g/dL (12.9-16.9)
[2020-10-08 05:32] LABS: BUN/Creatinine Ratio 13 (6-26); Blood Urea Nitrogen 10 mg/dL (8-23); Calcium 8.2 mg/dL (8.6-10.3); Carbon Dioxide 21 mEq/L (23-29); Chloride 107 mEq/L (98-107); Glucose 103 mg/dL (70-105); Osmolality,Calculated 283 (280-300); Potassium 3.7 mEq/L (3.5-5.1); Sodium 137 mEq/L (136-145); eGFR For African Americans > 60 (> 60); eGFR For Non-African Americans > 60 (> 60)
[2020-10-08] MEDS ORDERED: *HR* Enoxaparin 40 MG/0.4 ML SYRINGE SQ SCH ×2 (06:00)
[2020-10-08 07:39] VITALS: BP 106/40
[2020-10-08 09:32] LABS: Hematocrit 37.8 % (37.5-50.1); Hemoglobin 12.1 g/dL (12.9-16.9)
[2020-10-12 09:04] LABS: Calculi Mass 26 mg
== END 2020-10-08 12:45 | disposition home or self-care (01) ==
LOC: 3ANU 09:36 → EMEROOARM 09:36 → 3ANU 13:58
PROVIDERS: ADMIT Internal Medicine; ATTEND Internal Medicine